=== PATIENT | female | born 1960 | race Caucasian/White ===

== ENCOUNTER 2019-11-11 12:48 | Outpatient (CLI) | payer OTHER, SELFPAY ==
--- NOTE | 2019-11-17 14:26 | WPDPFTINT ---
PFT Interpretation PFT Interpretation: DOS: 11/11/2019 REQUESTING: Raz He MD REASON FOR TESTING: cough PULMONARY FUNCTION TESTS Results are reproducible. Spirometry: FEV1 is mildly decreased at 75%. FVC is mildly decreased 69%. FEV1% ratio is normal 81%. No bronchodilator was given. Lung volumes: TLC mildly decreased 74% consistent with mild restriction. RV is 63%. RV/TLC is normal. No air trapping. Slow vital capacity is normal 80%, higher than FVC measure in spirometry, and is consistent with dynamic airway collapse. ERV is extremely low 21% and is consistent with obesity. Airway resistance mildly increased 133%. Diffusion: DLCO is moderately reduced 58%. Flow volume loop: Mild restrictive pattern. IMPRESSION: Mild mixed obstructive and restrictive processes with moderate diffusion impairment. Dynamic airway collapse is suggested with slow VC larger than forced vital capacity. Mild restrictive pattern which may be due to elevated BMI. Moderate diffusion impairment. The diffusion impairment is the most significant finding and can be due to anemia, early ILD, chronic thromboembolic disease or collagen vascular disease with pulmonary vascular involvement. Clinical correlation is advised. Val Estrella MD
== END 2019-11-11 12:49 | disposition home or self-care (01) ==
PROVIDERS: PCP Internal Medicine; Visit Provider Internal Medicine
DX: R05 Cough (principal); R94.2 Abnormal results of pulmonary function studies
CPT/HCPCS: 94375; 94726; 94729

== ENCOUNTER → 2020-05-06 08:39 | Outpatient (CLI) | payer OTHER, SELFPAY ==
--- NOTE | ~2020-05-06 | CT_ITS ---
EXAMINATION: CT chest wo con DATE: 05/06/2020 09:10 INDICATION: Cough. Shortness of breath. TECHNIQUE: Computed tomography (CT) of the chest was performed without intravenous contrast. Automate d exposure control and iterative reconstruction technique were employed. Exam dose: 637.39 mGy-cm to costa exam DLP. COMPARISON: None FINDINGS: There is prominent elevation of the right leaf of diaphragm with right basilar atelectasis. No pulmonary consolidation or pulmonary mass lesion is evident. No pneumothorax. Normal size and homogeneous attenuation of the thyroid gland. No hilar or mediastinal mass lesion or lymphadenopathy. Normal heart size. No thoracic aortic aneurysm. No pericardial or pleural effusion. Small sliding hiatal hernia Normal morphology of the adrenal glands. There is a nonspecific 7 mm sclerotic lesion of the left side of the fifth thoracic vertebral body. N o other suspicious osteosclerotic or any osteolytic lesions are identified. IMPRESSION: Prominent elevation right leaf of the diaphragm with associated atelectasis at right don g base Nonspecific 7 mm sclerotic lesion of T5 vertebral body Reviewed, dictated and finalized at [facility]. Reviewed, dictated and finalized at location B. 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
== END ==
PROVIDERS: PCP Internal Medicine; Visit Provider Internal Medicine
DX: R05 Cough (principal)
CPT/HCPCS: 71250

== ENCOUNTER → 2020-06-21 11:47 | Outpatient (CLI) | payer OTHER, SELFPAY ==
--- NOTE | ~2020-06-21 | MM_ITS ---
EXAMINATION: MM screening [facility] BI w teofilo HISTORY: Screening mammogram TECHNIQUE: Craniocaudal and mediolateral oblique 3-D tomosynthesis images were obtained and synthetic 2-D images were generated. CAD analysis was submitted and interpreted. COMPARISON: 05/03/2019, 03/02/2018, 02/10/2017 BREAST PARENCHYMAL COMPOSITION: The breasts are almost entirely fatty. FINDINGS: There is no evidence of suspicious mass, calcification, or architectural distortion to sugg est malignancy in either breast. There has been no suspicious interval change. IMPRESSION: 1. No mammographic evidence of malignancy. 2. Recommend routine screening mammography in one year. 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
== END ==
PROVIDERS: PCP Internal Medicine; Visit Provider Internal Medicine
DX: Z12.31 Encounter for screening mammogram for malignant neoplasm of breast (principal)
CPT/HCPCS: 77063; 77067

== ENCOUNTER 2021-03-24 16:21 | Emergency (ER) | payer OTHER, SELFPAY ==
--- NOTE | ~2021-03-24 | CT_ITS ---
EXAMINATION: CT brain wo con EXAM DATE: 03/24/2021 17:07 INDICATION: Headache. TECHNIQUE: Spiral CT of the head was performed without contrast. Axial, coronal and sagittal images were reviewed. The dose-length product (DLP) for this examination was 605.33 mGy-cm. The exposure w as tailored according to patient size, and iterative reconstruction (ASIR) was used as additional dos e reduction technique. There is no prior study for comparison. FINDINGS: There is no acute intraparenchymal hemorrhage. No evidence of intraparenchymal brain mass lesion. No evidence of acute infarction. There is no mass effect or midline shift. The ventricles are normal in size. There are no extra-axial collections. There are no acute calvarial fractures. T he orbits are unremarkable. Soft tissue is unremarkable. The visualized sinuses and mastoid air kennedy ls are well aerated. IMPRESSION: 1. No acute intracranial findings. Reviewed, dictated and finalized at location .
[2021-03-24 16:26] VITALS: BP 154/81; PULSE 118; RESP 16; TEMP 37; O2SAT 97
[2021-03-24 17:45] LABS: Basophils Absolute Auto 0.1 K/mm3 (0.0-0.1); Basophils Percent Auto 0.8 % (0.2-1.2); Eosinophils Absolute Auto 0.2 K/mm3 (0-0.3); Eosinophils Percent Auto 2.3 % (0-4.4); Hematocrit 44.8 % (37.0-47.0); Hemoglobin 14.8 g/dL (12.0-15.0); Immature Granulocyte Absolute 0.02 K/mm3 (0.00-0.031); Immature Granulocyte Percent A 0.3 % (0-0.5); Lymphocytes Absolute Auto 1.96 K/mm3 (0.9-3.2); Lymphocytes Percent Auto 25.2 % (18.3-44.2); Mean Platelet Volume 9.4 fl (7.4-10.4); Monocytes Absolute Auto 0.7 K/mm3 (0.1-0.6); Monocytes Percent Auto 8.4 % (2.6-8.5); Neutrophils Absolute Auto 4.9 K/mm3 (1.3-6.7); Platelet Count Result 247 k/mm3 (150-375); Red Blood Count 4.62 M/mm3 (4.2-5.4); White Blood Count 7.8 K/mm3 (4.5-10.0)
--- NOTE | 2021-03-24 17:50 | ED.GENADULT ---
HPI - General Adult General Chief complaint: Headache Stated complaint: headache/vomiting Time Seen by Provider: 03/24/21 16:57 Source: patient Mode of arrival: ambulatory Limitations: no limitations History of Present Illness HPI narrative: Patient presents for evaluation of headache that began yesterday and was the worst headache of her life. Patient states that it was localized on the right side of her head and caused her to vomit. She denies changes in her vision or hearing. Patient states that she took some extra strength Tylenol prior to vomiting and after vomiting she noted that the headache improved. Patient states when she spoke with her brother and her doctor about her symptoms they want her to come to the emergency department to be evaluated. Patient states that this time her headache is improved. She states there is still some tenderness to the right side of her head. 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 Related Data Home Medications Medication Instructions Recorded Confirmed atorvastatin 03/24/21 03/24/21 hydrochlorothiazide 03/24/21 levothyroxine [Synthroid] 03/24/21 Allergies Allergy/AdvReac Type Severity Reaction Status Date / Time BEES Allergy Mild Unknown Uncoded 03/24/21 18:12 Review of Systems Review of Systems: CONSTITUTIONAL: Denies fever, chills, or sweats. EYES: Denies visual changes, redness, or discharge. ENT: Denies rhinorrhea, congestion, sore throat, or otalgia. CARDIOVASCULAR: Denies chest pain, palpitations, or edema. RESPIRATORY: Denies cough or dyspnea. GASTROINTESTINAL: Reports episode of vomiting denies abdominal pain, nausea, vomiting, or diarrhea. GENITOURINARY: Denies dysuria or hematuria. SKIN: Denies rash or itching. MUSCULOSKELETAL: Denies back pain, joint pain, or myalgia. NEUROLOGIC: Reports headache denies numbness, dizziness, or weakness. PSYCHIATRIC: Denies anxiety or depression. Exam Narrative: GENERAL: Well-appearing, well-nourished, and in no acute distress. HEAD: Normocephalic, atraumatic. No tenderness to palpation of the right side of patient scalp. EYES: PERRLA and EOMI. ENT: Nares clear, no rhinorrhea or epistaxis. Mucous membranes moist. Oropharynx without tonsillar hypertrophy exudate or other lesions. Bilateral TMs pearly hendrix nonbulging. No hemotympanum NECK: Supple. ROM INTACT CHEST: Clear to auscultation. No respiratory distress. No wheezes rales or rhonchi HEART: Regular rate and rhythm. No murmur heard. Normal peripheral pulses. EXTREMITIES: Normal range of motion. No edema. SKIN: Warm, dry, no rash. NEURO: No focal deficits. Alert and oriented x3. Patient smiling and talking appropriately. No unilateral weakness. PSYCH: Normal mood and affect. Course Vital Signs Vital signs: Vital Signs Temperature 98.6 F 03/24/21 16:26 Pulse Rate 118 H 03/24/21 16:26 Respiratory Rate 16 03/24/21 16:26 Blood Pressure 154/81 H 03/24/21 16:26 Pulse Oximetry 97 03/24/21 16:26 Temperature 98.6 F 03/24/21 16:26 Pulse Rate 118 H 03/24/21 16:26 Respiratory Rate 16 03/24/21 16:26 Blood Pressure 154/81 H 03/24/21 16:26 Pulse Oximetry 97 03/24/21 16:26 Medical Decision Making [facility] Narrative Medical decision making narrative: Patient states that her headache is greatly improved and she has declined any medication interventions. Patient does not show any neurological deficits. Patient's CRP and sed rate are normal. Patient's blood work is appropriate. Patient's head CT was negative. Patient has been instructed to follow-up with her primary care for further investigation and management. Patient has been given strict return emergency department instructions if she develops any worsening symptoms, neurological deficit or any other concerning symptoms. Differential Diagnosis Differential Diagnosis: CVA, temporal arteritis, migraine, tension headache Vital Signs Vital Signs: Vital Signs
[2021-03-24 18:08] LABS: Alanine Aminotransferase 35 U/L (4-35); Albumin Level 4.4 g/dL (3.5-5.1); Alkaline Phosphatase 74 U/L (38-126); Anion Gap 8 mmol/L (8-16); Aspartate Amino Transferase 37 U/L (14-36); Bilirubin,Total 0.4 mg/dL (0.2-1.3); Blood Urea Nitrogen 23 mg/dL (7-17); Calcium 9.2 mg/dL (8.4-10.2); Carbon Dioxide 26 mmol/L (22-30); Chloride 107 mmol/L (98-107); Estimated CRCL calculation 75 ml/min; Estimated Glomerular Filt Rate > 60; Glucose 110 mg/dL (65-110); Potassium 3.8 mmol/L (3.4-5.0); Sodium 141 mmol/L (137-145)
[2021-03-24 18:19] LABS: Erythrocyte Sedimentation Rate 13 mm/hr (0-20)
[2021-03-24 18:28] LABS: CRP < 0.5 mg/dL (<1.0)
[2021-03-24 19:48] VITALS: BP 117/72; PULSE 85; RESP 16; O2SAT 96
== END 2021-03-24 19:51 | disposition home or self-care (01) ==
PROVIDERS: Physician Assistant; Emergency Provider Family Medicine; PCP Internal Medicine
DX: R51.9 Headache, unspecified (principal)
CPT/HCPCS: 36415; 70450; 80053; 85025; 85652; 86140; 99284

== ENCOUNTER → 2021-10-04 12:12 | Outpatient (CLI) | payer OTHER, SELFPAY ==
--- NOTE | ~2021-10-04 | MM_ITS ---
EXAMINATION: MM screening [facility] w [facility] HISTORY: Screening mammogram TECHNIQUE: Craniocaudal and mediolateral oblique 3-D tomosynthesis images were obtained and synthetic 2-D images were generated. CAD analysis was submitted and interpreted. COMPARISON: 06/2020, 05/03/2019, 03/02/2018 bilateral screening mammogram examinations BREAST PARENCHYMAL COMPOSITION: The breasts are almost entirely fatty. FINDINGS: There is no evidence of suspicious mass, calcification, or architectural distortion to sugg est malignancy in either breast. There has been no suspicious interval change. IMPRESSION: 1. No mammographic evidence of malignancy. 2. Recommend routine screening mammography in one year. BI-RADS Category 1: Negative Reviewed, dictated and finalized at location A.
== END ==
PROVIDERS: PCP Internal Medicine; Visit Provider Internal Medicine
DX: Z12.31 Encounter for screening mammogram for malignant neoplasm of breast (principal)
CPT/HCPCS: 77063; 77067

== ENCOUNTER → 2023-01-03 10:32 | Outpatient (CLI) | payer OTHER, SELFPAY ==
--- NOTE | ~2023-01-03 | MM_ITS ---
EXAMINATION: MM screening [facility] w [facility] HISTORY: Screening TECHNIQUE: Craniocaudal and mediolateral oblique 3-D tomosynthesis images were obtained and synthetic 2-D images were generated. CAD analysis was submitted and interpreted. COMPARISON: Comparison to multiple prior studies sequentially, with oldest reviewed study dated 09/10. BREAST PARENCHYMAL COMPOSITION: The breasts are almost entirely fatty. FINDINGS: There is no evidence of suspicious mass, calcification, or architectural distortion to sugg est malignancy in either breast. There has been no suspicious interval change. IMPRESSION: 1. No mammographic evidence of malignancy. 2. Recommend routine screening mammography in one year. BI-RADS Category 1: Negative Reviewed, dictated and finalized at location A.
== END ==
PROVIDERS: PCP Internal Medicine; Visit Provider Internal Medicine
DX: Z12.31 Encounter for screening mammogram for malignant neoplasm of breast (principal)
CPT/HCPCS: 77063; 77067

== ENCOUNTER 2024-02-20 10:23 | Outpatient (CLI) | payer OTHER, SELFPAY ==
--- NOTE | ~2024-02-20 | MM_ITS ---
EXAMINATION: MM screening [facility] BI w [facility] HISTORY: Screening TECHNIQUE: Craniocaudal and mediolateral oblique 3-D tomosynthesis images were obtained and synthetic 2-D images were generated. CAD analysis was submitted and interpreted. COMPARISON: Comparison to multiple prior studies sequentially, with oldest reviewed study dated 02/10. BREAST PARENCHYMAL COMPOSITION: Not Dense. The breasts are almost entirely fatty. FINDINGS: There is no evidence of suspicious mass, calcification, or architectural distortion to sugg est malignancy in either breast. There has been no suspicious interval change. IMPRESSION: 1. No mammographic evidence of malignancy. 2. Recommend routine screening mammography in one year. BI-RADS Category 1: Negative Reviewed, dictated and finalized at location B.
== END 2024-02-20 10:24 | disposition home or self-care (01) ==
LOC: MICIMG 10:24
PROVIDERS: PCP Internal Medicine; Visit Provider Internal Medicine
DX: Z12.31 Encounter for screening mammogram for malignant neoplasm of breast (principal)
CPT/HCPCS: 77063; 77067

== ENCOUNTER 2025-04-29 07:40 | Outpatient (CLI) | payer MEDICARE, SELFPAY ==
--- NOTE | ~2025-04-29 | MM_ITS ---
EXAMINATION: MM diagnostic [facility] w [facility] HISTORY: Right breast rash TECHNIQUE: Additional 3-D tomosynthesis images of the breasts were performed and synthetic 2-D images were generated. CAD analysis was submitted and interpreted. COMPARISON: Comparison to multiple prior studies sequentially, with oldest reviewed study dated 06/21/2020. BREAST PARENCHYMAL COMPOSITION: Not Dense: The breasts are almost entirely fatty. FINDINGS: The breasts are stable. No suspicious masses, calcifications or architectural distortion in either breast to suggest malignancy. IMPRESSION: 1. No evidence for malignancy in either breast. 2. Routine yearly screening mammogram and regular clinical breast examination are recommended. BI-RADS Category 1: Negative Reviewed, dictated and finalized at location B. 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 No evidence for malignancy in either breast. 2. Routine yearly screening mammogram and regular clinical breast examination a re recommended. BI-RADS Category 1: Negative
== END 2025-04-29 07:41 | disposition home or self-care (01) ==
LOC: MICIMG 07:41
PROVIDERS: PCP Internal Medicine; Visit Provider Internal Medicine
DX: N64.89 Other specified disorders of breast (principal)
CPT/HCPCS: 77062; 77066; G0279